=== PATIENT | male | born 1940 | race Caucasian/White ===

== ENCOUNTER → 2024-03-23 08:10 | Outpatient (REF) | payer MEDICARE, OTHER, SELFPAY ==
[2024-03-23 09:22] LABS: ALT (SGPT) 20 U/L (0-50); AST (SGOT) 30 U/L (17-59); Albumin 4.1 g/dl (3.5-5.0); Alkaline Phosphatase 56 U/L (38-126); Direct Bilirubin 0.1 mg/dl (0.0-0.4); Glucose 129 mg/dl (70-99); HDL Cholesterol 39 mg/dl; LDL Cholesterol, Calculated 65 mg/dl; Total Bilirubin 1.1 mg/dl (0.2-1.3); Total Cholesterol 145 mg/dl (50-199); Total Protein 6.5 g/dl (6.3-8.2); Triglyceride 206 mg/dl (10-149); Very Low Density Lipoprotein 41 mg/dl (0-30)
[2024-03-23 10:48] LABS: Glycohemoglobin (HgbA1c) 6.4 % (4.0-5.6)
== END ==
LOC: REG 08:10
PROVIDERS: ATTENDING PHYSICIAN Specialist; FAMILY PHYSICIAN Internal Medicine
DX: E11.59 Type 2 diabetes mellitus with other circulatory complications (principal); E11.65 Type 2 diabetes mellitus with hyperglycemia; I10 Essential (primary) hypertension; R97.20 Elevated prostate specific antigen [PSA]
CPT/HCPCS: 36415; 80061; 80076; 82947; 83036; 84153

== ENCOUNTER → 2024-05-19 09:38 | Outpatient (REF) | payer MEDICARE, OTHER, SELFPAY ==
[2024-05-19 12:42] LABS: NT-proBNP 1840 pg/ml
== END ==
LOC: RAD 09:38
PROVIDERS: ATTENDING PHYSICIAN Internal Medicine; REFERRING PHYSICIAN Internal Medicine Cardiovascular Disease
DX: M79.604 Pain in right leg (principal); R06.02 Shortness of breath; M79.605 Pain in left leg; R09.89 Other specified symptoms and signs involving the circulatory and respiratory systems; R06.09 Other forms of dyspnea; I42.9 Cardiomyopathy, unspecified
CPT/HCPCS: 36415; 83880; 93306; 93922; 93925

== ENCOUNTER → 2024-06-09 08:02 | Outpatient (REF) | payer MEDICARE, OTHER, SELFPAY | LOC: RSP 08:02 | PROVIDERS: ATTENDING PHYSICIAN Internal Medicine | DX: R06.02 Shortness of breath (principal) | CPT/HCPCS: 94727; 94729; 88738; 94060 ==

== ENCOUNTER → 2024-07-08 10:17 | Outpatient (REF) | payer MEDICARE, OTHER, SELFPAY ==
[2024-07-08 12:44] LABS: Blood Urea Nitrogen 22 mg/dl (9-20); Calcium 10.1 mg/dl (8.4-10.2); Carbon Dioxide 30 mmol/L (22-30); Chloride 98 mmol/L (98-107); Glucose 132 mg/dl (70-99); Potassium 4.5 mmol/L (3.5-5.1); Sodium 142 mmol/L (135-145); eGFR > 60.00
== END ==
LOC: HWLAB 10:17
PROVIDERS: ATTENDING PHYSICIAN Internal Medicine Cardiovascular Disease; FAMILY PHYSICIAN Internal Medicine; REFERRING PHYSICIAN Internal Medicine Critical Care Medicine
DX: I50.9 Heart failure, unspecified (principal); R06.02 Shortness of breath
CPT/HCPCS: 36415; 71046; 80048

== ENCOUNTER 2024-09-07 13:34 | Emergency (ER) | payer MEDICARE, OTHER, SELFPAY ==
[2024-09-07 13:37] VITALS: BP 99/58
--- NOTE | 2024-09-07 13:41 | ED.GENMED ---
ED Provider Triage
<Shaan Covington Jr., PA-C - Last Filed: 09/07/24 13:41>
-
Patient seen by provider in Triage?: Seen in Triage
Attestation: A medical screening examination has been initiated by a qualified medical provider. Based on the assessment performed at this time, it has been determined that an emergent medical condition may exist and the patient has been informed
that further medical evaluation and possible additional diagnostic testing may be needed.
HPI: 84-year-old male presenting from his physician aide with concerns of retinal changes on examination to the left eye. Chief Analytics Officer requesting inflammatory markers for possible temporal arteritis versus carotid related issue with blood flow
to the eye structures. Concerning this CT angio as well as labs ordered.
GENERAL: Alert , in no apparent distress
EYE: No visual abnormalities.
NECK: Trachea midline
ENT: No visible abnormalities.
LUNGS: No acute respiratory distress
NEUROLOGICAL: Alert and oriented
SKIN: Skin intact. No visible changes.
MUSCULOSKELETAL: Moving extremities normally
PSYCH: Normal and appropriate interaction.
This is a medical evaluation conducted in person to initiate diagnostic evaluation and provide initial therapeutics. Please see further documentation by the treating clinician.
History of Present Illness
<Shaan Covington Jr., PA-C - Last Filed: 09/07/24 13:41>
General
Chief Complaint: Eye Problems
Time Seen by Provider: 09/07/24 16:13
<Dar Juárez MD - Last Filed: 09/07/24 16:42>
General
Source: patient and other (Grandson)
History of Present Illness
History of Present Illness:
Patient has had ongoing issues with both eyes but more specifically the left eye recently. Some redness to the eye. Some gradual visual loss but that has progressed some over the last week. Seem his physician aide 3 days ago. After further
evaluation and discussion it was felt he needed emergent evaluation of his carotids and labs to rule out temporal arteritis. Patient denies other acute complaints. Denies headache sudden visual issues eye pain eye drainage neurologic symptoms etc.
Past History
<Shaan Covington Jr., PA-C - Last Filed: 09/07/24 13:41>
Past History
ED Past Medical History: HTN and NIDDM
ED Past Surgical History: Orthopedic (right ankle repair, Carpal tunnel), Tonsilectomy (and adnoids) and Other (Nasal surgery)
Social History
Tobacco: Non-smoker
Alcohol: None
Personal:
Living: with family
Review of Systems
<Dar Juárez MD - Last Filed: 09/07/24 16:42>
Review of Systems
All Other Systems: Not applicable
Phy Exam
<Dar Juárez MD - Last Filed: 09/07/24 16:42>
Physical Exam
Physical Exam:
GENERAL: Alert and oriented in no apparent distress
EYE: Orbits normal. Minimal conjunctival injection left greater than right eye.
NECK: Supple, no carotid bruit
CARDIAC: Regular rate and rhythm without any obvious murmurs.
LUNGS: No respiratory distress
NEUROLOGICAL: Alert and oriented , grossly non-focal
SKIN: Warm and dry
PSYCH: Normal and appropriate interaction.
Course
<Shaan Covington Jr., PA-C - Last Filed: 09/07/24 13:41>
Orders/Labs/Results
Orders:
Orders
09/07/24 13:39
EKG [Electrocardiogram (*1)] Urgent
Reason for Study: TIA/Stroke
CT Head & Neck Angio W/wo IV Urgent
Comment:
Reason For Exam: eye doctor request left carotid concern, eye [place]
09/07/24 13:40
EKG- Treatment ONCE
09/07/24 13:48
CBC/With Diff [Complete Blood Count/With Diff] Urgent
CMP [Comprehensive Metabolic Panel] Urgent
CRP [C-Reactive Protein] Urgent
ESR [Erythrocyte Sed Rate] Urgent
Abnormal Lab Results
09/07/24
13:48
RDW 14.6 H %
(11.5-14.5)
Absolute Monos (auto) 0.8 H 10^3/uL
(0.1-0.6)
Monocytes % 11.0 H %
(1.7-9.3)
Chloride 96 L mmol/L
(98-107)
Carbon Dioxide 31 H mmol/L
(22-30)
BUN 23 H mg/dl
(9-20)
Glucose 136 H mg/dl
(70-99)
09/07/24 13:48
09/07/24 13:48
Vital Signs
Initial and Last Documented VS:
Initial Vital Signs
Temp Pulse Resp BP Pulse Ox
97.7 F 82 18 99/58 99
09/07/24 13:37 09/07/24 13:37 09/07/24 13:37 09/07/24 13:37 09/07/24 13:37
Last Documented Vital Signs
Temp Pulse Resp BP Pulse Ox
97.7 F 82 18 99/58 99
09/07/24 13:37 09/07/24 13:37 09/07/24 13:37 09/07/24 13:37 09/07/24 13:37
<Dar Juárez MD - Last Filed: 09/07/24 16:42>
Orders/Labs/Results
Orders:
Orders
09/07/24 13:39
EKG [Electrocardiogram (*1)] Urgent
Reason for Study: TIA/Stroke
CT Head & Neck Angio W/wo IV Urgent
Comment:
Reason For Exam: eye doctor request left carotid concern, eye [place]
09/07/24 13:40
EKG- Treatment ONCE
09/07/24 13:48
CBC/With Diff [Complete Blood Count/With Diff] Urgent
CMP [Comprehensive Metabolic Panel] Urgent
CRP [C-Reactive Protein] Urgent
ESR [Erythrocyte Sed Rate] Urgent
Abnormal Lab Results
09/07/24
13:48
RDW 14.6 H %
(11.5-14.5)
Absolute Monos (auto) 0.8 H 10^3/uL
(0.1-0.6)
Monocytes % 11.0 H %
(1.7-9.3)
Chloride 96 L mmol/L
(98-107)
Carbon Dioxide 31 H mmol/L
(22-30)
BUN 23 H mg/dl
(9-20)
Glucose 136 H mg/dl
(70-99)
09/07/24 13:48
09/07/24 13:48
Vital Signs
Initial and Last Documented VS:
Initial Vital Signs
Temp Pulse Resp BP Pulse Ox
97.7 F 82 18 99/58 99
09/07/24 13:37 09/07/24 13:37 09/07/24 13:37 09/07/24 13:37 09/07/24 13:37
Last Documented Vital Signs
Temp Pulse Resp BP Pulse Ox
97.7 F 82 18 99/58 99
09/07/24 13:37 09/07/24 13:37 09/07/24 13:37 09/07/24 13:37 09/07/24 13:37
<Dar Juárez MD - Last Filed: 09/07/24 16:42>
MDM/Problems Addressed
Differential Diagnosis Includes:
Patient's exam and workup unremarkable. Discussed with patient's primary physician aide. Comfortable with further outpatient management and follow-up. Copy of report given to patient. Also stressed to follow-up thyroid nodule for ultrasound and
CT of the chest
<Dar Juárez MD - Last Filed: 09/07/24 16:42>
*Radiology
Radiology exam reviewed: radiology read reviewed (No acute findings. Incidental thyroid nodule. Incidental mosaic pattern to the upper lung with adenopathy)
*Critical Care Note
Total Time (30-74mins, 75-104mins- exclusive of procedures): Not Applicable
ED Attending Note
<Shaan Covington Jr., PA-C - Last Filed: 09/07/24 13:41>
-
Portions of this chart may have been created with voice recognition software.� Occasional wrong word or��sound alike� substitutions may have occurred due to the inherent limitations of voice recognition software.
Discharge Plan
Departure
Patient Disposition: Home (Routine Discharge)
Date of Disposition: 09/07/24
Time of Disposition: 16:40
Patient with high blood pressure during this ER visit?: No
Discharge Problem:
Evaluation for left eye visual loss, History of macular degeneration/glaucoma, Neovascularization left eye, Known uveitis left eye
Prescriptions:
No Action
sitagliptin phos-metformin [Janumet] 1 EACH tablet
1 ea PO BID
Vit C/E/Zn/Coppr/Lutein/Zeaxan [Preservision Areds 2 Chew Tab] 1 EACH Tab.Chew
2 tab PO DAILY
latanoprost 1 DROP drops
1 drp BOTH EYES HS
pyridoxine (vitamin B6) 50 MG tablet
50 mg PO DAILY
aspirin 81 MG tablet,chewable
81 mg PO DAILY
cholecalciferol (vitamin D3) 1,000 UNITS tablet
1,000 units PO DAILY
multivitamin with folic acid [Tab-A-Jorge] 1 TABLET tablet
1 tab PO DAILY
furosemide 40 MG tablet
40 mg PO DAILY 30 Days Qty: 30 0RF
carvedilol 6.25 MG tablet
6.25 mg PO BID 30 Days Qty: 60 0RF
lisinopril 5 MG tablet
5 mg PO DAILY 30 Days Qty: 30 0RF
Referrals:
Roberto Ariza MD [Family Provider] -
Activity Restrictions/Additional Instructions:
Follow-up as per your specialist. See the retina specialist tomorrow
Return immediately with sudden change in vision eye pain, neurologic symptoms unusual headache or any other concerning symptoms
Discharge Date and Time
Print Language: YORUBA
[2024-09-07 13:57] LABS: % Basophils 0.7 % (0-2); % Eosinophils 1.4 % (0-6); % Immature Granulocytes 0.3 % (0-0.5); % Lymphocytes 25.5 % (20.5-51.1); % Neutrophils 61.1 % (42.2-75.2); Absolute Basophils 0.1 10^3/uL (0-0.2); Absolute Eosinophils 0.1 10^3/uL (0-0.7); Absolute Lymphocytes 1.9 10^3/uL (1.2-3.4); Absolute Monocytes 0.8 10^3/uL (0.1-0.6); Absolute Neutrophils 4.4 10^3/uL (1.4-6.5); Hematocrit 45.5 % (39.0-52.0); Hemoglobin 15.4 g/dL (13.0-18.0); Mean Corp Hgb Conc. 33.8 g/dL (33.0-37.0); Mean Corpuscular Hgb 30.7 pg (27.0-31.0); Mean Corpuscular Volume 90.6 fL (80.0-94.0); Mean Platelet Volume 9.6 fL (7.4-10.4); Nucleated Red Blood Cells % 0 % (-); Platelet Count 243 10^3/uL (130-400); Red Blood Cell Count 5.02 10^6/uL (4.70-6.10); Red Cell Dist. Width 14.6 % (11.5-14.5); White Blood Cell Count 7.3 10^3/uL (4.8-10.8)
[2024-09-07 14:16] LABS: ALT (SGPT) 28 U/L (0-50); AST (SGOT) 36 U/L (17-59); Albumin 4.6 g/dl (3.5-5.0); Alkaline Phosphatase 48 U/L (38-126); Blood Urea Nitrogen 23 mg/dl (9-20); Calcium 9.8 mg/dl (8.4-10.2); Carbon Dioxide 31 mmol/L (22-30); Chloride 96 mmol/L (98-107); Glucose 136 mg/dl (70-99); Potassium 4.6 mmol/L (3.5-5.1); Sodium 139 mmol/L (135-145); Total Protein 7.2 g/dl (6.3-8.2); eGFR 58.89
[2024-09-07 15:05] LABS: C-Reactive Protein < 5.00 mg/L (0.0-10.00)
[2024-09-07 15:17] LABS: Erythrocyte Sed Rate 11 mm/hour (0-20)
== END 2024-09-07 17:19 | disposition home or self-care (01) ==
LOC: EMR 13:34
PROVIDERS: Physician Assistant; EMERGENCY PHYSICIAN Emergency Medicine; FAMILY PHYSICIAN Internal Medicine
DX: H54.7 Unspecified visual loss (principal); H35.30 Unspecified macular degeneration; H40.9 Unspecified glaucoma; H20.9 Unspecified iridocyclitis; I10 Essential (primary) hypertension; E11.9 Type 2 diabetes mellitus without complications
CPT/HCPCS: 99284; 70496; 70498; 80053; 85025; 85652; 86140; 93005; Q9967

== ENCOUNTER → 2024-10-02 08:22 | Outpatient (REF) | payer MEDICARE, OTHER, SELFPAY ==
[2024-10-02 09:38] LABS: % Basophils 0.8 % (0-2); % Eosinophils 1.5 % (0-6); % Immature Granulocytes 0.5 % (0-0.5); % Lymphocytes 22.1 % (20.5-51.1); % Monocytes 11.1 % (1.7-9.3); Absolute Basophils 0.1 10^3/uL (0-0.2); Absolute Eosinophils 0.1 10^3/uL (0-0.7); Absolute Lymphocytes 1.3 10^3/uL (1.2-3.4); Absolute Monocytes 0.7 10^3/uL (0.1-0.6); Absolute Neutrophils 3.9 10^3/uL (1.4-6.5); Hematocrit 43.4 % (39.0-52.0); Hemoglobin 14.7 g/dL (13.0-18.0); Mean Corp Hgb Conc. 33.9 g/dL (33.0-37.0); Mean Corpuscular Hgb 31.1 pg (27.0-31.0); Mean Corpuscular Volume 91.9 fL (80.0-94.0); Mean Platelet Volume 10.2 fL (7.4-10.4); Nucleated Red Blood Cells % 0 % (-); Platelet Count 231 10^3/uL (130-400); Red Blood Cell Count 4.72 10^6/uL (4.70-6.10); Red Cell Dist. Width 14.6 % (11.5-14.5)
[2024-10-02 10:04] LABS: ALT (SGPT) 18 U/L (0-50); AST (SGOT) 28 U/L (17-59); Albumin 4.2 g/dl (3.5-5.0); Alkaline Phosphatase 54 U/L (38-126); Blood Urea Nitrogen 24 mg/dl (9-20); Calcium 9.3 mg/dl (8.4-10.2); Carbon Dioxide 29 mmol/L (22-30); Chloride 103 mmol/L (98-107); Glucose 128 mg/dl (70-99); HDL Cholesterol 40 mg/dl; LDL Cholesterol, Calculated 88 mg/dl; Potassium 4.8 mmol/L (3.5-5.1); Sodium 142 mmol/L (135-145); Total Cholesterol 166 mg/dl (50-199); Total Protein 6.8 g/dl (6.3-8.2); Triglyceride 194 mg/dl (10-149); Very Low Density Lipoprotein 38 mg/dl (0-30); eGFR > 60.00
[2024-10-02 10:33] LABS: Glycohemoglobin (HgbA1c) 6.1 % (4.0-5.6)
== END ==
LOC: REG 08:22
PROVIDERS: ATTENDING PHYSICIAN Internal Medicine
DX: Z00.01 Encounter for general adult medical examination with abnormal findings (principal); E11.59 Type 2 diabetes mellitus with other circulatory complications; I10 Essential (primary) hypertension; Z68.30 Body mass index [BMI] 30.0-30.9, adult; E78.2 Mixed hyperlipidemia
CPT/HCPCS: 36415; 80053; 80061; 83036; 85025

== ENCOUNTER → 2024-12-31 13:00 | Outpatient (REF) | payer MEDICARE, OTHER, SELFPAY ==
[2024-12-31 14:10] LABS: ALT (SGPT) 18 U/L (0-50); AST (SGOT) 27 U/L (17-59); Albumin 4.7 g/dl (3.5-5.0); Alkaline Phosphatase 48 U/L (38-126); Blood Urea Nitrogen 24 mg/dl (9-20); Calcium 10.4 mg/dl (8.4-10.2); Carbon Dioxide 29 mmol/L (22-30); Chloride 102 mmol/L (98-107); Direct Bilirubin 0.3 mg/dl (0.0-0.4); Glucose 108 mg/dl (70-99); HDL Cholesterol 43 mg/dl; LDL Cholesterol, Calculated 85 mg/dl; Potassium 4.6 mmol/L (3.5-5.1); Sodium 142 mmol/L (135-145); Total Bilirubin 1.1 mg/dl (0.2-1.3); Total Cholesterol 188 mg/dl (50-199); Total Protein 7.3 g/dl (6.3-8.2); Triglyceride 304 mg/dl (10-149); Very Low Density Lipoprotein 60 mg/dl (0-30); eGFR 58.89
[2024-12-31 15:14] LABS: Glycohemoglobin (HgbA1c) 5.9 % (4.0-5.6)
== END ==
LOC: REG 13:00
PROVIDERS: ATTENDING PHYSICIAN Internal Medicine
DX: E11.65 Type 2 diabetes mellitus with hyperglycemia (principal); E78.5 Hyperlipidemia, unspecified; I10 Essential (primary) hypertension; Z00.01 Encounter for general adult medical examination with abnormal findings; R97.20 Elevated prostate specific antigen [PSA]
CPT/HCPCS: 36415; 80053; 80061; 82248; 83036; 84153

== ENCOUNTER → 2025-06-21 15:07 | Outpatient (REF) | payer MEDICARE, OTHER, SELFPAY ==
[2025-06-21 16:32] LABS: ALT (SGPT) 31 U/L (0-50); AST (SGOT) 42 U/L (17-59); Albumin 4.4 g/dl (3.5-5.0); Alkaline Phosphatase 53 U/L (38-126); Calcium 10.0 mg/dl (8.4-10.2); Glucose 124 mg/dl (70-99); HDL Cholesterol 46 mg/dl; LDL Cholesterol, Calculated 88 mg/dl; Total Protein 7.0 g/dl (6.3-8.2); Very Low Density Lipoprotein 36 mg/dl (0-30)
[2025-06-22 08:11] LABS: Glycohemoglobin (HgbA1c) 6.2 % (4.0-5.6)
== END ==
LOC: REG 15:07
PROVIDERS: ATTENDING PHYSICIAN Internal Medicine
DX: E11.65 Type 2 diabetes mellitus with hyperglycemia (principal); E11.59 Type 2 diabetes mellitus with other circulatory complications; E66.3 Overweight; E78.1 Pure hyperglyceridemia; E78.5 Hyperlipidemia, unspecified; Z20.820 Contact with and (suspected) exposure to varicella; E83.52 Hypercalcemia
CPT/HCPCS: 36415; 80061; 80076; 82310; 82947; 83036; 86787